=== PATIENT | male | born 1965 | race Caucasian/White ===

== ENCOUNTER 2017-04-06 00:13 | Emergency (ER) | payer BC, OTHER ==
[2017-04-06 00:42] VITALS: BP 131/85; PULSE 93; TEMP 101.2; BMI 31.9
[2017-04-06] MEDS ORDERED: ONDANSETRON 4 MG/2 ML VIAL IVPUSH ONE (01:10)
[2017-04-06] MEDS ORDERED: ACETAMINOPHEN 325 MG TABLET (FP) PO ONE (01:12)
[2017-04-06] MEDS ORDERED: SODIUM CHLORIDE 1,000 ML IV STA (01:19)
[2017-04-06] MEDS ORDERED: ACETAMINOPHEN 325 MG TABLET (FP) ONE (01:31)
[2017-04-06] MEDS ORDERED: ONDANSETRON 4 MG/2 ML VIAL ONE (01:31)
[2017-04-06 01:35] LABS: BASO % 0.7 % (0-2.0); EOS % 0.6 % (0-4.5); MCH 26.9 pg (25.7-33.7); MCHC 33.2 g/dl (32.0-35.9); MEAN CELL VOLUME 80.8 fl (80-96); MEAN PLT VOLUME 9.3 fl (7.5-11.1); NEUT % 79.3 % (42.8-82.8); PLATELET COUNT 177 K/MM3 (134-434); RDW 13.2 % (11.9-15.9)
--- NOTE | 2017-04-06 01:40 | PDOC ---
History of Present Illness - General History Source: Patient Exam Limitations: No Limitations - History of Present Illness Initial Comments: 04/06/17 01:41 The patient is a 52 year old male presenting with his family, with no significant past medical history, who presents to the emergency department with generalized weakness, fever, headache, nausea, vomit and diarrhea. He describes his headache as ranging from mild to moderate, without radiation or modifying factors. He reports multiple vomiting and diarrhea episodes, which were non bloody. He reports that he has taken Dulcolax medication and Mucinex. 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 The patient denies chest pain, shortness of breath, and dizziness. Denies fever , chills, and constipation. Allergies: None Past surgical history: Left shoulder surgery Social history: No alcohol, tobacco or drug use reported GENERAL/CONSTITUTIONAL: (+) Fever, generalized weakness. No chills. HEAD, EYES, EARS, NOSE AND THROAT: No change in vision. No ear pain or discharge. No sore throat.- CARDIOVASCULAR: No chest pain or shortness of breath <Carloz Gonzalez - Last Filed: 04/06/17 01:40> <Angie Pal - Last Filed: 04/06/17 02:36> - General Chief Complaint: Cold Symptoms Stated Complaint: WEAKNESS, FEVER Time Seen by Provider: 04/06/17 00:57 Past History <Carloz Gonzalez - Last Filed: 04/06/17 01:40> - Past Medical History COPD: No Other medical history: Pt denies - Immunization History Td Vaccination: Yes - Suicide/Smoking/Psychosocial Hx Smoking Status: No Smoking History: Never smoked Have you smoked in the past 12 months: No Number of Cigarettes Smoked Daily: 0 Information on smoking cessation initiated: No Hx Alcohol Use: No Drug/Substance Use Hx: No Substance Use Type: None <Angie Pal - Last Filed: 04/06/17 02:36> - Past Medical History Allergies/Adverse Reactions: Allergies Allergy/AdvReac Type Severity Reaction Status Date / Time No Known Allergies Allergy Verified 04/06/17 00:31 Home Medications: Ambulatory Orders No Home Medications 0 dose .ROUTE UTDICT 07/09/12 Oseltamivir Phosphate [Tamiflu] 75 mg PO BID #10 capsule 01/29/17 Amox-Tr/K Cl [Augmentin - 875Mg Tablet] 1 tab PO BID #20 tablet 04/06/17 Ondansetron [Zofran Odt -] 4 mg SL BID PRN #14 od.tablet 04/06/17 Review of Systems - Review of Systems Able to Perform ROS?: Yes Comments:: 04/06/17 01:41 RESPIRATORY: No cough, wheezing, or hemoptysis. GASTROINTESTINAL: (+) Nausea, vomiting, diarrhea. No constipation. GENITOURINARY: No dysuria, frequency, or change in urination. MUSCULOSKELETAL: No joint or muscle swelling or pain. No neck or back pain. SKIN: No rash NEUROLOGIC: (+) Headache. No vertigo, loss of consciousness, or change in strength/sensation. ENDOCRINE: No increased thirst. No abnormal weight change HEMATOLOGIC/LYMPHATIC: No anemia, easy bleeding, or history of blood clots. ALLERGIC/IMMUNOLOGIC: No hives or skin allergy. <Carloz Gonzalez - Last Filed: 04/06/17 01:40> *Physical Exam - Vital Signs Last Vital Signs Temp Pulse Resp BP Pulse Ox 101.2 F H 93 H 20 131/85 99 04/06/17 00:32 04/06/17 00:32 04/06/17 00:32 04/06/17 00:32 04/06/17 00:32 - Physical Exam Comments: 04/06/17 01:41 GENERAL: Awake, alert, and fully oriented, in no acute distress HEAD: No signs of trauma, normocephalic, atraumatic EYES: PERRLA, EOMI, sclera anicteric, conjunctiva clear ENT: (+) Mild oropharynx erythema. Auricles normal inspection, hearing grossly normal, nares patent. (+) Dry mucosa NECK: Normal ROM, supple, no lymphadenopathy, JVD, or masses LUNGS: No distress, speaks full sentences, clear to auscultation bilaterally HEART: (+)Tachycardia, normal S1 and S2, no murmurs, rubs or gallops, peripheral pulses normal and equal bilaterally. ABDOMEN: Soft, nontender, normoactive bowel sounds. No guarding, no rebound. No masses EXTREMITIES : Normal inspection, Normal range of motion, no edema. No clubbing or cyanosis. NEUROLOGICAL: Cranial nerves II through XII grossly intact. Normal speech, normal gait, no focal sensorimotor deficits SKIN: Warm, Dry, normal turgor, no rashes or lesions noted. <Carloz Gonzalez - Last Filed: 04/06/17 01:40> - Vital Signs Last Vital Signs Temp Pulse Resp BP Pulse Ox 101.2 F H 93 H 20 131/85 99 04/06/17 00:32 04/06/17 00:32 04/06/17 00:32 04/06/17 00:32 04/06/17 00:32 <Angie Pal - Last Filed: 04/06/17 02:36> ED Treatment Course - LABORATORY CBC & Chemistry Diagram: 04/06/17 01:28 04/06/17 01:28 - ADDITIONAL ORDERS Additional order review: 04/06/17 01:00 Influenza Types A,B Antigen (ELISABETH) - Final Nasopharyngeal Swab - Final - Medications Given in the ED: ED Medications Discontinued Medications Generic Name Dose Route Start Last Admin Trade Name Freq PRN Reason Stop Dose Admin Acetaminophen 650 mg 04/06/17 01:12 04/06/17 01:34 Tylenol - PO 04/06/17 01:13 650 mg ONCE ONE Administration Ondansetron HCl 4 mg 04/06/17 01:10 04/06/17 01:34 Zofran Injection IVPUSH 04/06/17 01:11 4 mg ONCE ONE Administration <Carloz Gonzalez - Last Filed: 04/06/17 01:40> - LABORATORY CBC & Chemistry Diagram: 04/06/17 01:28 04/06/17 01:28 - ADDITIONAL ORDERS Additional order review: 04/06/17 01:00 Influenza Types A,B Antigen (ELISABETH) - Final Nasopharyngeal Swab - Final - Medications Given in the ED: ED Medications Discontinued Medications Generic Name Dose Route Start Last Admin Trade Name Freq PRN Reason Stop Dose Admin Acetaminophen 650 mg 04/06/17 01:12 04/06/17 01:34 Tylenol - PO 04/06/17 01:13 650 mg ONCE ONE Administration Ondansetron HCl 4 mg 04/06/17 01:10 04/06/17 01:34 Zofran Injection IVPUSH 04/06/17 01:11 4 mg ONCE ONE Administration <Angie Pal - Last Filed: 04/06/17 02:36> *DC/Admit/Observation/Transfer - Attestations Scribe Attestion: 04/06/17 01:41 Documentation prepared by Carloz Gonzalez, acting as medical records coordinator for Angie Pal MD <Carloz Gonzalez - Last Filed: 04/06/17 01:40> <Angie Pal - Last Filed: 04/06/17 02:36> Diagnosis at time of Disposition: Acute bacterial pharyngitis - Discharge Dispostion Disposition: HOME Condition at time of disposition: Stable - Prescriptions Prescriptions: Amox-Tr/K Cl [Augmentin - 875Mg Tablet] 1 tab PO BID #20 tablet Ondansetron [Zofran Odt -] 4 mg SL BID PRN #14 od.tablet PRN Reason: Nausea And/Or Vomiting - Referrals Referrals: Syed Martinez MD [Primary Care Provider] - - Patient Instructions Printed Discharge Instructions: DI for Strep Throat Additional Instructions: 1-please orange picker your antibiotics at the pharmacy 2- stay home and rest 3-take tylenol every 4 hours IF needed for fever and pain. If you prefer you can take motrin every 6 hours for pain and fever 4-for comfort and hydration drink lots of fluid-popscicle,ice cream,chicken soup encouraged 5-return for any breathing difficulties - Post Discharge Activity
[2017-04-06 02:08] LABS: ALBUMIN 3.8 g/dl (3.4-5.0); ALK PHOS 73 U/L (45-117); ANION GAP 9 (8-16); BILIRUBIN,TOTAL 1.3 mg/dL (0.2-1.0); CO2 26 mmol/L (21-32); CREATININE 1.2 mg/dL (0.7-1.3); GLUCOSE,RANDOM 113 mg/dL (74-106); SGOT/AST 19 U/L (15-37); SGPT/ALT 36 U/L (12-78); TOT PROT 7.2 g/dl (6.4-8.2)
[2017-04-06] MEDS ORDERED: AZITHROMYCIN IVPB 500 MG in DEXTROSE 5%-WATER - 250 ML IVPB ONE (02:27)
[2017-04-06] MEDS ORDERED: AMOX TR/POT CLAV 875MG/125MG TABLETS (FP) PO STA (02:30)
[2017-04-06] MEDS ORDERED: AMOX TR/POT CLAV 875MG/125MG TABLETS (FP) ONE (02:33)
== END 2017-04-06 02:46 | disposition home or self-care (01) ==
LOC: JER 00:13
PROC: 3E033GC Introduction of Other Therapeutic Substance into Peripheral Vein, Percutaneous Approach (ICD-10-PCS; principal; 2017-04-06)
DX: J02.0 Streptococcal pharyngitis (principal); B95.0 Streptococcus, group A, as the cause of diseases classified elsewhere; R53.1 Weakness
CPT/HCPCS: 36415; 80053; 83690; 85025; 87070; 87430; 87804; 99282-25